=== PATIENT | female | born 1950 | race Caucasian/White ===

== ENCOUNTER 2023-03-10 09:45 | Emergency (ER) | payer SELFPAY ==
[2023-03-10 10:07] VITALS: BMI 35.6
[2023-03-10] MEDS ORDERED: FAMOTIDINE 20 MG/50 ML IVPB 20 MG/50 ML MG IVPB ONE ×2 (10:33→10:45)
[2023-03-10] MEDS ORDERED: MAG HYDROX/AL HYDROX/SIMETH 30 ML UNIT-DOSE CUP PO ONE (10:33)
[2023-03-10] MEDS ORDERED: LACTATED RINGERS SOLUTION 1,000 ML/1,000 ML INFUS.BAG IV SCH (10:45)
[2023-03-10] MEDS ORDERED: MAG HYDROX/AL HYDROX/SIMETH 30 ML UNIT-DOSE CUP ONE (10:45)
[2023-03-10] MEDS ORDERED: METOCLOPRAMIDE HCL INJECTION 10 MG/2 ML VIAL IVPUSH ONE (10:47)
[2023-03-10 11:10] LABS: BASO % 0.5 % (0-2.0); EOS % 0.2 % (0-4.5); HEMATOCRIT 44.8 % (32.4-45.2); LYMPH % 6.5 % (8-40); MCH 29.1 pg (25.7-33.7); MCHC 33.4 g/dl (32.0-36.0); MEAN PLT VOLUME 10.1 fl (7.5-11.1); NEUT % 77.8 % (42.8-82.8); PLATELET COUNT 118 10^3/uL (134-434); RBC 5.15 M/mm3 (3.60-5.2); RDW 13.7 % (11.6-15.6)
[2023-03-10] MEDS ORDERED: MECLIZINE HCL 25 MG TABLET (FP) PO ONE (11:25)
[2023-03-10] MEDS ORDERED: CEPHALEXIN MONOHYDRATE 500 MG CAPSULE (UD) PO ONE (11:27)
[2023-03-10] MEDS ORDERED: SULFAMETHOXAZOLE/TRIMETHOPRIM 800MG/160MG D.S. TABLET PO ONE (11:33)
[2023-03-10 11:48] LABS: POTASSIUM 3.6 mmol/L (3.5-5.1)
[2023-03-10 11:50] LABS: CALCIUM 8.9 mg/dL (8.5-10.1)
[2023-03-10 11:51] LABS: ALBUMIN 3.3 g/dl (3.4-5.0); MAGNESIUM 2.3 mg/dL (1.8-2.4)
[2023-03-10 11:55] LABS: TOT PROT 6.8 g/dl (6.4-8.2)
[2023-03-10 11:56] LABS: BILIRUBIN,TOTAL 1.2 mg/dL (0.2-1)
[2023-03-10] MEDS ORDERED: CEPHALEXIN MONOHYDRATE 500 MG CAPSULE (UD) ONE (12:14)
[2023-03-10] MEDS ORDERED: MECLIZINE HCL 25 MG TABLET (FP) ONE (12:15)
[2023-03-10] MEDS ORDERED: METOCLOPRAMIDE HCL INJECTION 10 MG/2 ML VIAL ONE (12:16)
[2023-03-10 15:28] VITALS: BP 130/72; PULSE 91; RESP 16; TEMP 98.9
== END 2023-03-10 15:29 | disposition home or self-care (01) ==
LOC: JER 09:45
PROC: 3E033GC Introduction of Other Therapeutic Substance into Peripheral Vein, Percutaneous Approach (ICD-10-PCS; principal; 2023-03-10)
PROC: 3E033GC Introduction of Other Therapeutic Substance into Peripheral Vein, Percutaneous Approach (ICD-10-PCS; 2023-03-10)
DX: L03.313 Cellulitis of chest wall (principal); R53.1 Weakness; R50.9 Fever, unspecified; R42 Dizziness and giddiness; R63.8 Other symptoms and signs concerning food and fluid intake; R11.2 Nausea with vomiting, unspecified; R43.9 Unspecified disturbances of smell and taste
CPT/HCPCS: 36415; 71046-TC-FY; 76705-TC; 80053; 83735; 84484; 85025; 93005; 93010; 99285-25

== ENCOUNTER 2023-04-12 19:26 | Inpatient (IN) | payer OTHER ==
[2023-04-12] MEDS ORDERED: ARTIFICIAL TEARS (POLYVINYL ALCOHOL) OPTH DROPS OU ONE (20:29)
[2023-04-12] MEDS ORDERED: valACYclovir HCL 500 MG TABLET (FP) PO ONE (20:34)
[2023-04-12] MEDS ORDERED: predniSONE 20 MG TABLET (UD) PO ONE (20:35)
[2023-04-12] MEDS ORDERED: FAMOTIDINE 20 MG TABLET ONE (20:54)
[2023-04-12 21:10] LABS: BASO % 0.4 % (0-2.0); EOS % 1.2 % (0-4.5); HEMATOCRIT 43.5 % (32.4-45.2); HEMOGLOBIN 14.7 GM/dL (10.7-15.3); LYMPH % 20.4 % (8-40); MCH 29.2 pg (25.7-33.7); MCHC 33.7 g/dl (32.0-36.0); MEAN CELL VOLUME 86.6 fl (80-96); MEAN PLT VOLUME 9.3 fl (7.5-11.1); MONO % 11.2 % (3.8-10.2); NEUT % 66.8 % (42.8-82.8); PLATELET COUNT 185 10^3/uL (134-434); RBC 5.02 M/mm3 (3.60-5.2); RDW 14.6 % (11.6-15.6); WHITE BLOOD COUNT 5.9 K/mm3 (4.0-10.0)
[2023-04-12 21:17] LABS: INR 1.07 (0.83-1.09); PROTHROMBIN TIME (PATIENT) 12.4 SEC (9.7-13.0)
[2023-04-12 21:29] LABS: POTASSIUM 3.6 mmol/L (3.5-5.1)
[2023-04-12 21:31] LABS: CALCIUM 9.3 mg/dL (8.5-10.1)
[2023-04-12] MEDS ORDERED: valACYclovir HCL 500 MG TABLET (FP) ONE (21:31)
[2023-04-12 21:32] LABS: ALBUMIN 3.8 g/dl (3.4-5.0); BLOOD UREA NITROGEN 12.5 mg/dL (7-18)
[2023-04-12 21:34] LABS: BILIRUBIN,DIRECT 0.2 mg/dL (0.0-0.2); CREATININE 0.8 mg/dL (0.55-1.3)
[2023-04-12 21:36] LABS: BILIRUBIN,TOTAL 0.8 mg/dL (0.2-1); TOT PROT 7.4 g/dl (6.4-8.2)
[2023-04-12] MEDS ORDERED: ACETAMINOPHEN 500 MG TABLET (FP) PO ONE (22:26)
[2023-04-12] MEDS ORDERED: ACETAMINOPHEN 500 MG TABLET (FP) ONE (23:20)
[2023-04-13] MEDS ORDERED: LIDOCAINE 5% TOPICAL PATCH ONE (01:55)
[2023-04-13] MEDS ORDERED: LIDOCAINE 5% TOPICAL PATCH TP ONE (02:54)
[2023-04-13] MEDS: ACETAMINOPHEN 325 MG TABLET (FP) PO PRN (06:21)
[2023-04-13] MEDS: valACYclovir HCL 500 MG TABLET (FP) PO SCH ×3 (06:21→23:13)
[2023-04-13 09:14] LABS: HEMATOCRIT 43.2 % (32.4-45.2); HEMOGLOBIN 14.6 GM/dL (10.7-15.3); MCH 29.4 pg (25.7-33.7); MCHC 33.8 g/dl (32.0-36.0); MEAN CELL VOLUME 86.9 fl (80-96); MEAN PLT VOLUME 9.3 fl (7.5-11.1); PLATELET COUNT 184 10^3/uL (134-434); RBC 4.98 M/mm3 (3.60-5.2); RDW 14.8 % (11.6-15.6); WHITE BLOOD COUNT 6.2 K/mm3 (4.0-10.0)
[2023-04-13 09:30] LABS: POTASSIUM 3.4 mmol/L (3.5-5.1)
[2023-04-13 09:34] LABS: CALCIUM 9.2 mg/dL (8.5-10.1)
[2023-04-13 09:35] LABS: ALBUMIN 3.8 g/dl (3.4-5.0); BLOOD UREA NITROGEN 11.7 mg/dL (7-18)
[2023-04-13 09:38] LABS: CREATININE 0.8 mg/dL (0.55-1.3)
[2023-04-13 09:39] LABS: BILIRUBIN,TOTAL 1.1 mg/dL (0.2-1); TOT PROT 7.4 g/dl (6.4-8.2)
[2023-04-13] MEDS: predniSONE 20 MG TABLET (UD) PO SCH (10:15)
[2023-04-13] MEDS: ENOXAPARIN NA (PORCINE) 40 MG/0.4 ML DISP.SYRIN SQ SCH (10:15)
[2023-04-13] MEDS: CEFTRIAXONE 2 GM in DEXTROSE 5%-WATER 100 ML IVPB SCH (11:47)
[2023-04-13] MEDS ORDERED: POTASSIUM CHLORIDE ORAL LIQUID 20 MEQ/15 ML PO ONE (15:31)
[2023-04-13] MEDS ORDERED: POTASSIUM CHLORIDE TABS 10 MEQ TABLET.ER (FP) PO ONE (15:31)
[2023-04-13] MEDS: LIDOCAINE PATCH REMOVAL MC SCH (23:15)
[2023-04-14] MEDS: valACYclovir HCL 500 MG TABLET (FP) PO SCH ×3 (06:26→22:48)
[2023-04-14] MEDS: predniSONE 20 MG TABLET (UD) PO SCH (10:05)
[2023-04-14] MEDS: ENOXAPARIN NA (PORCINE) 40 MG/0.4 ML DISP.SYRIN SQ SCH (10:05)
[2023-04-14] MEDS: CEFTRIAXONE 2 GM in DEXTROSE 5%-WATER 100 ML IVPB SCH (10:06)
[2023-04-14] MEDS ORDERED: POTASSIUM CHLORIDE ORAL LIQUID 20 MEQ/15 ML PO ONE (10:15)
[2023-04-14] MEDS: GABAPENTIN 100 MG CAPSULE PO SCH ×2 (13:40→22:49)
[2023-04-14] MEDS: ACETAMINOPHEN 325 MG TABLET (FP) PO PRN (22:48)
[2023-04-14] MEDS: LIDOCAINE PATCH REMOVAL MC SCH ×2 (22:49→22:53)
[2023-04-15] MEDS: GABAPENTIN 100 MG CAPSULE PO SCH ×3 (06:32→22:56)
[2023-04-15] MEDS: valACYclovir HCL 500 MG TABLET (FP) PO SCH ×3 (06:32→22:56)
[2023-04-15 10:13] LABS: ALBUMIN 3.5 g/dl (3.4-5.0)
[2023-04-15 10:15] LABS: BILIRUBIN,DIRECT 0.1 mg/dL (0.0-0.2)
[2023-04-15] MEDS: CEFTRIAXONE 2 GM in DEXTROSE 5%-WATER 100 ML IVPB SCH (10:15)
[2023-04-15] MEDS: predniSONE 20 MG TABLET (UD) PO SCH (10:15)
[2023-04-15] MEDS: ENOXAPARIN NA (PORCINE) 40 MG/0.4 ML DISP.SYRIN SQ SCH (10:15)
[2023-04-15 10:17] LABS: TOT PROT 6.9 g/dl (6.4-8.2)
[2023-04-15 10:18] LABS: BILIRUBIN,TOTAL 0.6 mg/dL (0.2-1)
[2023-04-15 14:03] VITALS: BMI 34.5
[2023-04-15] MEDS: LIDOCAINE PATCH REMOVAL MC SCH (22:57)
[2023-04-16] MEDS: valACYclovir HCL 500 MG TABLET (FP) PO SCH ×3 (05:55→21:54)
[2023-04-16] MEDS: GABAPENTIN 100 MG CAPSULE PO SCH ×3 (05:55→21:54)
[2023-04-16 09:53] LABS: BASO % 0.4 % (0-2.0); EOS % 0.2 % (0-4.5); HEMATOCRIT 40.4 % (32.4-45.2); HEMOGLOBIN 13.3 GM/dL (10.7-15.3); LYMPH % 26.3 % (8-40); MCH 29.2 pg (25.7-33.7); MCHC 32.8 g/dl (32.0-36.0); MEAN CELL VOLUME 88.9 fl (80-96); MEAN PLT VOLUME 10.2 fl (7.5-11.1); MONO % 7.5 % (3.8-10.2); NEUT % 65.6 % (42.8-82.8); PLATELET COUNT 193 10^3/uL (134-434); RBC 4.54 M/mm3 (3.60-5.2); RDW 14.5 % (11.6-15.6); WHITE BLOOD COUNT 6.5 K/mm3 (4.0-10.0)
[2023-04-16] MEDS: CEFTRIAXONE 2 GM in DEXTROSE 5%-WATER 100 ML IVPB SCH (10:06)
[2023-04-16] MEDS: ENOXAPARIN NA (PORCINE) 40 MG/0.4 ML DISP.SYRIN SQ SCH (10:06)
[2023-04-16] MEDS: predniSONE 20 MG TABLET (UD) PO SCH (10:06)
[2023-04-16 10:08] LABS: POTASSIUM 3.6 mmol/L (3.5-5.1)
[2023-04-16 10:10] LABS: ALBUMIN 3.2 g/dl (3.4-5.0); BLOOD UREA NITROGEN 16.5 mg/dL (7-18); CALCIUM 8.3 mg/dL (8.5-10.1)
[2023-04-16 10:13] LABS: CREATININE 0.9 mg/dL (0.55-1.3)
[2023-04-16 10:15] LABS: BILIRUBIN,TOTAL 0.5 mg/dL (0.2-1); TOT PROT 6.3 g/dl (6.4-8.2)
[2023-04-16] MEDS: DOXYCYCLINE HYCLATE 100 MG CAPSULE PO SCH (17:50)
[2023-04-16] MEDS: LIDOCAINE PATCH REMOVAL MC SCH (21:57)
[2023-04-17] MEDS: valACYclovir HCL 500 MG TABLET (FP) PO SCH ×2 (05:12→14:38)
[2023-04-17] MEDS: GABAPENTIN 100 MG CAPSULE PO SCH ×2 (05:12→14:38)
[2023-04-17 05:55] VITALS: RESP 17
[2023-04-17] MEDS: ENOXAPARIN NA (PORCINE) 40 MG/0.4 ML DISP.SYRIN SQ SCH (10:55)
[2023-04-17] MEDS: DOXYCYCLINE HYCLATE 100 MG CAPSULE PO SCH (10:55)
[2023-04-17] MEDS: predniSONE 20 MG TABLET (UD) PO SCH (10:55)
[2023-04-17 13:28] VITALS: BP 150/95; PULSE 74; TEMP 97.6
== END 2023-04-17 15:32 | disposition home or self-care (01) | DRG 724 ==
LOC: JER 19:26 → JERBED 04-13 00:20 → OBSVTOIN 04-13 04:27 → J7W 04-13 05:01
PROVIDERS: ADMIT Internal Medicine; ATTEND Internal Medicine
DX: A69.20 Lyme disease, unspecified (principal); G51.0 Bell's palsy; I10 Essential (primary) hypertension; K76.0 Fatty (change of) liver, not elsewhere classified; E87.6 Hypokalemia; E66.9 Obesity, unspecified; Z68.34 Body mass index [BMI] 34.0-34.9, adult
CPT/HCPCS: 36415; 70450-TC; 71046-TC-FY; 74176-TC; 74181-TC; 76705-TC; 80053; 80076; 82248; 84484; 85025; 85027; 85610; 85730; 86618; 86704; 86787; 86803; 87086; 87340; 87517; 87798; 93005; 93010; 99283-25; G0378